=== PATIENT | male | born 1995 | race Two or more races ===

== ENCOUNTER 2020-11-12 16:23 | Emergency (ER) | payer OTHER, SELFPAY ==
[2020-11-12 17:04] VITALS: BP 120/64; PULSE 48; RESP 17; TEMP 36.9; O2SAT 99; BMI 29.0
--- NOTE | 2020-11-12 17:32 | ED.GENADULT ---
HPI - General Adult General Chief complaint: General Medical Stated complaint: covid symptoms Time Seen by Provider: 11/12/20 17:08 Source: patient Mode of arrival: ambulatory Limitations: no limitations History of Present Illness HPI narrative: 25 y/o male with history of asthma presents with acute onset of body aches, headache, nausea and vomiting that started this morning at 2am. He was in his normal state of health yesterday and has had no known sick contacts. He reports he vomited all morning but none since this afternoon. No diarrhea, no abdominal pain, no fever or chills. No recent antibiotics and no food bourne illness exposure he can recall. MD complaint: nausea and vomiting Onset (ago): hour(s) (15) Location: head, chest and abdomen Radiation: non-radiation Severity: mild Pain Consistency: constant Relieving factors: rest Exacerbating factors: eating Associated symptoms: headaches, loss of appetite and malaise Treatments prior to arrival: none Related Data Previous Rx's Medication Instructions Recorded ondansetron HCl [Zofran] 4 mg PO Q8H PRN #10 tab 11/12/20 Allergies Allergy/AdvReac Type Severity Reaction Status Date / Time amoxicillin [AMOXICILLIN] Allergy Unknown RASH Unverified 07/14/20 16:32 Review of Systems Review of Systems: Constitutional: No Fever, No Chills ENT/Mouth: No sore throat, No Rhinorrhea, No Swallowing Difficulty Cardiovascular: No Chest Pain, No SOB, No Orthopnea, No Edema Respiratory: No Cough, No Sputum, No Wheezing, No dyspnea Gastrointestinal: + Nausea, + Vomiting, No Diarrhea, No abdominal Pain Genitourinary: No Dysuria, No Urinary Frequency, No Hematuria Musculoskeletal: No joint pain, + Myalgias Skin: No Skin Lesions, No rash Neuro: No Weakness, No Numbness, No Dizziness, + Headache PMFSH Past Medical History Attestation statement: The following information was validated with the patient. Social History Social History Advance Directives: No Advance Directives Information Provided: No Physical Exam Vital Signs: Vital Signs: Last Vital Signs Temp 98.5 F 11/12/20 17:04 Pulse 48 L 11/12/20 17:04 Resp 17 11/12/20 17:04 BP 120/64 11/12/20 17:04 Pulse Ox 99 11/12/20 17:04 Body Mass Index 29.0 Appearance: Alert. Oriented X3. No acute distress. Eyes: normal inspection ENT: Pharynx normal. Neck: Normal inspection. Neck supple. CVS: Normal heart rate and rhythm. Pulses normal. Respiratory: No respiratory distress. Breath sounds normal. Abdomen: Soft and nontender. +BS x4 Extremities: No lower extremity edema. Neuro: Oriented X 3. No motor deficit. No sensory deficit. Course Course Course Narrative: 25 y/o male with mild intermittent asthma presenting with N/V, body aches and headache. Likely viral in etiology - possible gastroenteritis vs COVID/Flu. Will send respiratory panel. His exam and VS are reassuring. He is stable for discharge. Will call with results. Discharge Plan Discharge Clinical Impression: Acute viral syndrome Patient Disposition: Home, Self-Care Instructions: Acute Nausea and Vomiting (ED), Viral Syndrome (ED) Additional Instructions: You were found to be COVID-19/Influnza and RSV today. We will call you with the results later tonight. Rest. Drink plenty of fluids. Take the prescribed medication as needed for nausea. Take over the counter cold/flu medications as needed for your symptoms. Take Tylenol and/or Motrin as needed for fevers and body aches. Follow up with your doctor this week. If you develop shortness of breath, difficulty breathing or any other concerning symptom come back to the ER for further evaluation. Prescriptions: New ondansetron HCl [Zofran] 4 mg tablet 4 mg PO Q8H PRN (Reason: nausea and vomiting) Qty: 10 RF: 0
[2020-11-12 20:36] LABS: Influenza A PCR NEGATIVE (Negative); Influenza B PCR NEGATIVE (Negative); Resp Syncy Virus RNA Qual PCR NEGATIVE (Negative); SARS COV2 PCR INHOUSE NEGATIVE (Negative)
== END 2020-11-12 18:06 | disposition home or self-care (01) ==
PROVIDERS: Physician Assistant; Emergency Provider Emergency Medicine; PCP Internal Medicine
DX: B34.9 Viral infection, unspecified (principal); M79.10 Myalgia, unspecified site; R11.2 Nausea with vomiting, unspecified; R51.9 Headache, unspecified; Z20.822 Contact with and (suspected) exposure to COVID-19
CPT/HCPCS: 0241U; 36415; 99283

== ENCOUNTER 2024-08-16 11:29 | Emergency (ER) | payer OTHER, SELFPAY ==
[2024-08-16 11:34] VITALS: BP 128/65; PULSE 76; RESP 16; TEMP 36.2; O2SAT 96; BMI 28.2
--- NOTE | 2024-08-16 11:34 | ED.GENADULT ---
[facility] - General Adult General Chief complaint: Nausea/Vomiting/Diarrhea Stated complaint: black vomit Time Seen by Provider: 08/16/24 12:23 Source: patient and RN notes reviewed Mode of arrival: ambulatory Limitations: no limitations History of Present Illness ED Provider: Karma Granados PA-C [facility] narrative: This is a 29-year-old male, with no known medical problems, who presents emergency department for evaluation of abdominal pain and 1 episode of vomiting. Patient states that last night he drank several alcoholic beverages in several shots of alcohol. He states that he awoke this morning with 1 episode of vomiting. He states that the vomiting was very dark in color. He states that he looked online in regards to his symptoms and red to seek the closest emergency room for evaluation. Denies history of similar symptoms in the past. He does not take NSAIDs frequently. He states that he has had no fevers, chills, lightheadedness, blurred vision, chest pain, shortness of breath, diarrhea or constipation. No bloody or black stool. He states slight discomfort in his abdomen however he states that this feels as though he is hungry as he has not eaten today. Denies severe abdominal pain. He is not on blood thinners. He does not drink alcohol daily. Denies taking any medications prior to his arrival in the emergency department. No other complaints or concerns at this time. MD complaint: Abdominal pain, vomiting Onset (ago): hour(s) Relieving factors: none Exacerbating factors: none Associated symptoms: denies other symptoms Treatments prior to arrival: none Related Data Previous Rx's ?Medication ?Instructions ?Recorded ondansetron HCl 4 mg tablet 4 mg PO Q8H PRN nausea and 11/12/20 (Zofran) vomiting #10 tabs omeprazole 20 mg capsule,delayed 20 mg PO DAILY 2 weeks #14 caps 08/16/24 release ondansetron 4 mg disintegrating 4 mg PO Q6-8H PRN nausea and 08/16/24 tablet vomiting #12 tabs Allergies Allergy/AdvReac Type Severity Reaction Status Date / Time amoxicillin [AMOXICILLIN] Allergy Unknown RASH Verified 08/16/24 11:36 Review of Systems Review of Systems: Yes all other systems are reviewed and are negative Constitutional: Constitutional: Reports as per [facility] Past Medical History Attestation statement: The following information was validated with the patient. Social History Social History Smoked in Last 30 Days: No Use of substances other than those prescribed or required for medical reasons: No Advance Directives: No Advance Directives Information Provided: No Physical Exam ED Vital Signs: Vital Signs - 24 hr 08/16/24 11:34 08/16/24 14:07 08/16/24 14:57 Temperature 97.1 F 98.0 F Pulse Rate 76 71 71 Respiratory Rate 16 16 16 Blood Pressure 128/65 120/99 H 120/99 H Pulse Oximetry 96 100 100 Oxygen Delivery Method Room Air Room Air Room Air BMI result Body Mass Index 28.2 Const General: cooperative, comfortable and no acute distress Orientation/consciousness: patient oriented x3 Limitations: no limitations HENMT Head: Yes normal to inspection, Yes normocephalic and Yes atraumatic Ears: hearing grossly normal bilaterally General nose exam: Normal external nose present Face and sinus: Yes normal facial exam Mouth: Normal oral and palatal mucosa present, oropharynx normal and moist mucous membranes Throat: Yes posterior oropharynx normal Eyes General: appearance normal, both eyes and all related structures Eyelids: Yes eyelids normal Conjunctivae: conjunctivae normal Sclerae: sclerae normal Pupils: Equal, round and reactive pupils present EOM: EOMs intact bilaterally Neck Neck: Yes normal visual inspection, Yes full ROM and Yes no lymphadenopathy Lymphatic: no lymphadenopathy noted Chest Chest palpation & inspection: normal inspection of the chest Resp Effort & Inspection: normal respiratory effort and able to speak in complete sentences Auscultation: clear to auscultation bilaterally, no crackles, no rales, no rhonchi and no wheezes Cardio Rate: regular rate Rhythm: regular rhythm Heart sounds: S1 normal heart sound present and S2 normal heart sound present GI Other: Abdomen is soft, nontender, nondistended Inspection: Yes normal to inspection Skin General skin exam: no rashes or lesions noted Trauma: no lacerations or abrasions Wounds: no wounds Neuro General: patient oriented x3 and moves all extremities Cranial nerves: Yes Equal, round and reactive pupils present Extrem General: Yes normal to inspection Right upper extremity: normal to inspection Left upper extremity: normal to inspection Right lower extremity: normal to inspection Left lower extremity: normal to inspection Course Course Course Narrative: This is a Rapid Medical Examination (RME) performed by Saida Morris PA-C in triage. Full HPI, ROS, assessment and treatment plan per primary provider in the Main ED. 29 yo male here for eval of 1 episode of vomiting black this morning. reports having a few beers last night. looked his symptoms up on google and was told to come to the ED. denies fever, chills, BRBPR, melena, abd pain. Plan: labs Reevaluation(s) Reevaluation #1: Labs returned, he has no leukocytosis, H&H stable, electrolyte within normal limits. No significant electrolyte derangement. Lipase within normal limits. Abdomen is soft nontender. Will treat alcoholic gastritis with omeprazole and p.o. challenge Reevaluation #2: Patient did report some nausea therefore was treated with Zofran. He is feeling much better, eating and drinking without return of symptoms. Advised to closely monitor symptoms and given strict return precautions. He will follow-up with his primary care physician. Will discharged on 2 week course of omeprazole. Also given a prescription for Zofran should nausea returned. He understands and agrees with plan. Patient stable for discharge. Time: 15:19 Medications Administered Discontinued Medications Generic Name Dose Route Start Last Admin Trade Name Freq PRN Reason Stop Dose Admin Omeprazole 20 mg 08/16/24 13:07 08/16/24 13:14 Omeprazole 20 Mg Capsule.Dr PO 08/16/24 13:08 20 mg ONCE ONE Administration Ondansetron HCl 4 mg 08/16/24 14:02 08/16/24 14:09 Ondansetron Odt 4 Mg Tab.Rapdis TRANSLINGU 08/16/24 14:03 4 mg ONCE ONE Administration Medical Decision Making Medical Decision Making [facility] Narrative: This is a 29-year-old male who presents emergency department with complaints of mild epigastric pain with 1 episode of dark vomit which occurred this morning. Patient had drank alcohol yesterday and had 1 episode of vomiting today. On arrival, vital signs within normal limits. He is speaking full sentences under no acute distress. Abdomen is soft and nontender. He had 1 episode of dark vomit. Symptoms likely consistent with alcohol induced gastritis. Will obtain labs. Plan: Labs Differential Diagnosis Differential Diagnoses: The differential diagnosis associated with the presentation includes Alcohol-induced gastritis, gastroenteritis, acute upper GI bleed, Mayra-Dorman tear Admission/Observation Consideration of admission/observation: Escalation of care including admission/observation considered Lab Data MDM Lab Attestation statement: I reviewed the patient's lab results. No leukocytosis, stable H&H, chemistry without any electrolyte derangements. 08/16/24 11:44 08/16/24 11:44 Labs: Lab Results 08/16/24 Range/Units 11:44 WBC 7.8 (4.8-10.8) X10*3/uL RBC 4.59 L (4.60-5.80) X10*6/uL Hgb 15.9 (14.0-18.0) g/dl Hct 42.8 (42.0-52.0) % MCV 93.2 (80.0-98.0) fL MCH 34.6 H (27.0-33.0) pg MCHC 37.1 H (31.0-36.0) g/dl RDW 11.3 (11.0-16.0) % Plt Count 244 (160-400) X10*3/uL MPV 9.6 (9.4-12.4) fL Immature Gran % (Auto) 1.2 H (0.0-0.4) % Neut % (Auto) 81.0 H (45-73) % Lymph % (Auto) 12.5 L (20-40) % [place] % (Auto) 4.5 (2-11) % Eos % (Auto) 0.4 (0-4) % Baso % (Auto) 0.4 (0-2) % Lymph # (Auto) 1.0 L (1.2-4.9) X10*3/uL [place] # (Auto) 0.4 (0.1-1.2) X10*3/uL Eos # (Auto) 0.0 (0.0-0.4) X10*3/uL Baso # (Auto) 0.0 (0.0-0.2) X10*3/uL Abs Immat Gran (auto) 0.09 H (0.00-0.03) X10*3/uL Absolute Neuts (auto) 6.3 (2.0-8.3) x10*3/uL Absolute Nucleated RBC 0.000 (0.0-0.012) X10*3/uL Nucleated RBC % (auto) 0.0 (0.0-0.2) /100WBC Sodium 142 (135-145) mmol/L Potassium 4.1 (3.3-5.1) mmol/L Chloride 112 H (96-108) mmol/L Carbon Dioxide 21 L (22-29) mmol/L Anion Gap 13 (12-20) BUN 14 (9-16) mg/dL Creatinine 0.97 (0.5-1.4) mg/dL Estim Creat Clear Calc 113.3 Estimated GFR > 60 Random Glucose 106 (60-115) mg/dL Calcium 9.7 (8.4-10.2) mg/dL Magnesium 1.8 (1.6-2.6) mg/dL Total Bilirubin 0.5 (0.0-1.0) mg/dL AST 26 (5-37) U/L ALT 41 H (0-40) U/L Alkaline Phosphatase 78 (39-117) U/L Total Protein 7.5 (6.5-8.0) g/dL Albumin 4.7 (3.5-5.0) g/dL Lipase 16 (8-78) U/L Discharge Plan Discharge Clinical Impression: Gastritis Patient Disposition: Home, Self-Care Instructions: Gastritis (ED), Diet for Stomach Ulcers and Gastritis (ED) Additional Instructions: You were seen in the emergency department due to abdominal pain and dark vomit. You likely have gastritis, which is irritation of the stomach lining causing you to have this type of presentation. Please take prescribed omeprazole for the next 2 weeks. Please avoid NSAIDs for the next 2 weeks. You may take Tylenol as needed for pain. Stick to a bland diet, avoid spicy or fried food. Take Zofran (Ondansetron) as needed for nausea or vomiting. If any new or worsening symptoms occur including but not limited to severe abdominal pain, vomiting, chest pain or shortness of breath, please seek emergent care. Prescriptions: New omeprazole 20 mg capsule,delayed release(DR/EC) 20 mg PO DAILY 14 Days Qty: 14 0RF ondansetron 4 mg tablet,disintegrating 4 mg PO Q6-8H PRN (Reason: nausea and vomiting) Qty: 12 0RF No Action ondansetron HCl [Zofran] 4 mg tablet 4 mg PO Q8H PRN (Reason: nausea and vomiting) Qty: 10 0RF Interventions: ED Discharge Assessment Last Done: 08/16/24 14:57 Discharge Date/Time: 08/16/24 14:58 Print Language: Brazilian
[2024-08-16 11:49] LABS: MANUAL DIFF FLAG NO
[2024-08-16 11:50] LABS: Basophils Percent Auto 0.4 % (0-2); Eosinophils Percent Auto 0.4 % (0-4); Hematocrit 42.8 % (42.0-52.0); Hemoglobin 15.9 g/dl (14.0-18.0); Imm Gran Abs Auto 0.09 X10*3/uL (0.00-0.03); Imm Gran Pct Auto 1.2 % (0.0-0.4); Lymphocytes Percent Auto 12.5 % (20-40); Mean Corpuscular HGB Conc 37.1 g/dl (31.0-36.0); Mean Corpuscular Hemoglobin 34.6 pg (27.0-33.0); Mean Corpuscular Volume 93.2 fL (80.0-98.0); Mean Platelet Volume 9.6 fL (9.4-12.4); Monocytes Absolute Auto 0.4 X10*3/uL (0.1-1.2); Monocytes Percent Auto 4.5 % (2-11); Neutrophils Absolute Auto 6.3 x10*3/uL (2.0-8.3); Platelet Count 244 X10*3/uL (160-400); Red Blood Count 4.59 X10*6/uL (4.60-5.80); Red Cell Distribution Width 11.3 % (11.0-16.0); White Blood Count 7.8 X10*3/uL (4.8-10.8)
[2024-08-16 12:07] LABS: Alanine Aminotransferase 41 U/L (0-40); Albumin Level 4.7 g/dL (3.5-5.0); Alkaline Phosphatase 78 U/L (39-117); Anion Gap 13 (12-20); Aspartate Amino Transferase 26 U/L (5-37); Bilirubin Total 0.5 mg/dL (0.0-1.0); Blood Urea Nitrogen 14 mg/dL (9-16); Calcium 9.7 mg/dL (8.4-10.2); Carbon Dioxide 21 mmol/L (22-29); Chloride 112 mmol/L (96-108); Creatinine Clr Calc Pharmacy 113.3; Estimated Glomerular Filt Rate > 60; Glucose Random 106 mg/dL (60-115); Lipase 16 U/L (8-78); Magnesium 1.8 mg/dL (1.6-2.6); Potassium 4.1 mmol/L (3.3-5.1); Sodium 142 mmol/L (135-145); Total Protein 7.5 g/dL (6.5-8.0)
[2024-08-16] MEDS: Omeprazole 20 MG CAPSULE.DR PO (13:14)
[2024-08-16 14:07] VITALS: BP 120/99; PULSE 71; RESP 16; O2SAT 100
[2024-08-16] MEDS: Ondansetron ODT 4 MG TAB.RAPDIS TRANSLINGU (14:09)
[2024-08-16 14:57] VITALS: BP 120/99; PULSE 71; RESP 16; TEMP 36.7; O2SAT 100
== END 2024-08-16 14:58 | disposition home or self-care (01) ==
PROVIDERS: Physician Assistant Medical; Emergency Provider Emergency Medicine
DX: K29.70 Gastritis, unspecified, without bleeding (principal); R11.2 Nausea with vomiting, unspecified; R10.13 Epigastric pain; Z79.899 Other long term (current) drug therapy
CPT/HCPCS: 36415; 80053; 83690; 83735; 85025; 99283; 99284